=== PATIENT | male | born 1950 | race Caucasian/White ===

== ENCOUNTER 2021-01-22 08:11 | Emergency (ER) | payer OTHER ==
[~2021-01-22] VITALS: Ht 193 cm; Wt 117.9 kg
[2021-01-22 08:41] LABS: BASOPHILS PERCENT AUTO 2 % (0-2); EOSINOPHILS ABSOLUTE AUTO 0.44 K/mm3 (0.00-0.68); EOSINOPHILS PERCENT AUTO 7 % (0-6); Hematocrit 47.9 % (37.0-53.0); Hemoglobin 16.3 g/dL (13.5-17.5); IMMATURE GRAN ABSOLUTE AUTO 0.01 K/mm3 (0.00-0.10); IMMATURE GRAN PERCENT AUTO 0 % (0-1); LYMPHOCYTES ABSOLUTE AUTO 1.98 K/mm3 (0.84-5.20); LYMPHOCYTES PERCENT AUTO 32 % (21-46); MONOCYTES ABSOLUTE AUTO 0.59 K/mm3 (0.16-1.47); MONOCYTES PERCENT AUTO 9 % (4-13); Mean Corpuscular HGB 30.6 pg (26.0-34.0); Mean Corpuscular Volume 90 fL (80-100); Mean Platelet Volume 12.3 fL (9.1-12.4); NEUTROPHILS ABSOLUTE AUTO 3.17 K/mm3 (1.96-9.15); NEUTROPHILS PERCENT AUTO 50 % (41-73); Platelet Count 179 K/mm3 (150-400); RDW Coefficient Variation 12.1 % (11.7-14.2); RDW Standard Deviation 40.2 fL (35.1-46.3); Red Blood Cell Count 5.32 M/mm3 (4.30-5.90); White Blood Cell Count 6.29 K/mm3 (4.00-11.30)
[2021-01-22] MEDS ORDERED: ALOGLIPTIN25 M1 PO (08:53)
[2021-01-22] MEDS ORDERED: PROSTIN VR500 MCG/3 UD (08:54)
[2021-01-22] MEDS ORDERED: ERGO400 PO (08:55)
[2021-01-22] MEDS ORDERED: FISH OIL-VIT D1 EACH PO (08:56)
[2021-01-22] MEDS ORDERED: Vitamin B-121000 MCG (08:56)
[2021-01-22 08:57] LABS: Alanine Aminotransfer (ALT/SGP 34 U/L (12-78); Alk Phos 58 U/L (50-136); Anion Gap 4 mmol/L (6-16); Aspartate Aminotrans (AST/SGOT 29 U/L (12-37); Bilirubin, Total 0.7 mg/dL (0.1-1.0); Blood Urea Nitrogen 22 mg/dL (8-24); CO2, Blood 26 mmol/L (21-32); Calcium, Blood 9.2 mg/dL (8.5-10.1); Chloride, Blood 107 mmol/L (98-108); Creatinine, Blood 1.16 mg/dL (0.60-1.20); Globulin, Blood 4.1 g/dL (2.2-4.0); Glomerular Filtration Rate >60 (60-); Glucose, Blood 157 mg/dL (70-99); Potassium, Blood 4.6 mmol/L (3.5-5.5); Sodium, Blood 137 mmol/L (136-145); Total Protein, Blood 8.1 g/dL (6.4-8.2); Troponin I <0.015 ng/mL (0.000-0.040)
[2021-01-22] MEDS ORDERED: GABA300 PO (08:57)
[2021-01-22] MEDS ORDERED: NOVOLIN 70100 UNIT/3 SC (08:58)
== END 2021-01-22 12:50 | disposition home or self-care (01) ==
LOC: ER 08:11
PROVIDERS: Emergency Medicine
DX: R07.9 Chest pain, unspecified (principal); E11.9 Type 2 diabetes mellitus without complications; Z79.4 Long term (current) use of insulin; Z79.899 Other long term (current) drug therapy
CPT/HCPCS: 71046; 71260; 80053; 82947; 84484; 85025; 93005; 93010; 99284-25; Q9967

== ENCOUNTER 2021-02-28 08:57 | Observation (INO) | payer OTHER ==
[~2021-02-28] VITALS: Ht 193 cm; Wt 116.7 kg
[~2021-02-28 08:57] MED LIST: ALOGLIPTIN25 M1 PO; ERGO400 PO; FISH OIL-VIT D1 EACH PO; GABA300 PO; NOVOLIN 70100 UNIT/3 SC; PROSTIN VR500 MCG/3 UR; Vitamin B-121000 MCG
[2021-02-28] MEDS ORDERED: XARELTO20 MG PO (09:21)
[2021-02-28] MEDS ORDERED: NITR.4SL SL (09:21)
[2021-02-28 09:48] LABS: BASOPHILS ABSOLUTE AUTO 0.08 K/mm3 (0.00-0.23); BASOPHILS PERCENT AUTO 1 % (0-2); EOSINOPHILS ABSOLUTE AUTO 0.43 K/mm3 (0.00-0.68); EOSINOPHILS PERCENT AUTO 6 % (0-6); Hematocrit 46.9 % (37.0-53.0); Hemoglobin 16.1 g/dL (13.5-17.5); IMMATURE GRAN ABSOLUTE AUTO 0.03 K/mm3 (0.00-0.10); IMMATURE GRAN PERCENT AUTO 0 % (0-1); LYMPHOCYTES ABSOLUTE AUTO 1.59 K/mm3 (0.84-5.20); LYMPHOCYTES PERCENT AUTO 24 % (21-46); MONOCYTES ABSOLUTE AUTO 0.63 K/mm3 (0.16-1.47); MONOCYTES PERCENT AUTO 9 % (4-13); Mean Corpuscular HGB 31.4 pg (26.0-34.0); Mean Corpuscular HGB Conc 34.3 g/dL (31.5-36.5); Mean Corpuscular Volume 92 fL (80-100); Mean Platelet Volume 11.6 fL (9.1-12.4); NEUTROPHILS ABSOLUTE AUTO 3.92 K/mm3 (1.96-9.15); NEUTROPHILS PERCENT AUTO 59 % (41-73); Platelet Count 191 K/mm3 (150-400); RDW Standard Deviation 43.9 fL (35.1-46.3); Red Blood Cell Count 5.12 M/mm3 (4.30-5.90); White Blood Cell Count 6.68 K/mm3 (4.00-11.30)
[2021-02-28 10:03] LABS: Alanine Aminotransfer (ALT/SGP 30 U/L (12-78); Albumin, Blood 3.9 g/dL (3.4-5.0); Albumin/Globulin Ratio 1.1 (0.8-1.8); Alk Phos 58 U/L (50-136); Anion Gap 9 mmol/L (6-16); Aspartate Aminotrans (AST/SGOT 20 U/L (12-37); Bilirubin, Total 0.9 mg/dL (0.1-1.0); Blood Urea Nitrogen 18 mg/dL (8-24); Bun/Creatinine Ratio 15.7 (12.0-20.0); CO2, Blood 22 mmol/L (21-32); Calcium, Blood 8.9 mg/dL (8.5-10.1); Chloride, Blood 106 mmol/L (98-108); Creatinine, Blood 1.15 mg/dL (0.60-1.20); Globulin, Blood 3.6 g/dL (2.2-4.0); Glomerular Filtration Rate >60 (60-); Glucose, Blood 161 mg/dL (70-99); Potassium, Blood 4.1 mmol/L (3.5-5.5); Sodium, Blood 137 mmol/L (136-145); Total Protein, Blood 7.5 g/dL (6.4-8.2); Troponin I <0.015 ng/mL (0.000-0.040)
[2021-02-28] MEDS ORDERED: VITAMIN D31000 UNI1 PO (13:20)
[2021-02-28] MEDS ORDERED: Vitamin B-121000 MCG PO (13:20)
[2021-02-28] MEDS ORDERED: GABA300 PO (13:21)
[2021-02-28] MEDS ORDERED: FISH OIL 1,2001 EAC7 PO (13:21)
[2021-02-28] MEDS ORDERED: FOLI1 PO (13:21)
[2021-02-28] MEDS ORDERED: LIDO700A20 TOP (13:22)
[2021-02-28] MEDS ORDERED: METF500 PO (13:24)
[2021-02-28] MEDS ORDERED: Percocet 5-3251 EACH PO ×2 (13:25→14:15)
[2021-02-28] MEDS ORDERED: PANT40 PO (13:26)
[2021-02-28] MEDS ORDERED: VALACYCLOVIR1000 M1 PO (13:27)
--- NOTE | 2021-03-01 04:49 | NUR ---
SHIFT SUMMARY NO ACUTE CHANGES. INITIALLY, PT C/O HEADACHE WHICH RESOLVED AFTER AN HOUR AFTER PT RESTED IN BED. 20:00 DOSE OF NITRO PASTE HELD DUE TO STRESS TEST SCHEDULED IN THE MORNING. PT DENIED CHEST PAIN OR CHEST PRESSURE THROUGH OUT THE SHIFT. APPLIED SCD'S TO LOWER LEFT CALF ONLY PT HAS DVT IN HIS RIGHT LEG. TELE MONITORED PT SINUS RHYTHM WITH 1ST DEGREE BLOCK WITH RATE OF 64. 2100 TROPONIN WAS NEGATIVE. VSS, SATING ABOVE 95% ON ROOM AIR. INDEPENDENT IN ROOM TO BATHROOM. WILL CONTINUE TO MONITOR.
[2021-03-01 06:13] LABS: CHOL/HDL RATIO 6.4; Cholesterol 232 mg/dL (50-200); HDL Cholesterol 36 mg/dL (>39); LDL/HDL RATIO 4.7; Low Density Lipoprotein Chol 170 mg/dL (0-110); Triglycerides 132 mg/dL (30-160); Very Low Density Lipoprot Chol 26 mg/dL (6-32)
[2021-03-01] MEDS ORDERED: ATOR40TA PO (18:00)
[2021-03-01] MEDS ORDERED: METO25ER PO (18:00)
--- NOTE | 2021-03-01 18:27 | NUR ---
DISCHARGED HOME WITH ALL PERSONAL BELONGINGS IN PATIENT POSSESSION. TEACHBACK METHOD UTILIZED, PATIENT VERBALIZED UNDERSTANDING, AND ALL QUESTIONS ANSWERED.
== END 2021-03-01 18:27 | disposition home or self-care (01) ==
LOC: ER 08:57 → MEDS 08:58
PROVIDERS: Emergency Medicine; Nurse Practitioner Acute Care; ADMIT Internal Medicine
DX: R07.89 Other chest pain (principal); I10 Essential (primary) hypertension; E78.5 Hyperlipidemia, unspecified; E11.9 Type 2 diabetes mellitus without complications; E66.01 Morbid (severe) obesity due to excess calories; Z68.31 Body mass index [BMI] 31.0-31.9, adult; Z86.718 Personal history of other venous thrombosis and embolism; Z79.01 Long term (current) use of anticoagulants; Z79.4 Long term (current) use of insulin
CPT/HCPCS: 36415; 71045; 71260; 78452; 80053; 80061; 82947; 83036; 84484; 85025; 93005; 93010; 93017; 93306; 96374-59; 99285-25; A9270; A9500; G0378; J0280; J2405; J2785; Q9967

== ENCOUNTER 2024-01-17 08:13 | Day surgery (SDC) | payer OTHER ==
[~2024-01-17] VITALS: Ht 193 cm; Wt 118.7 kg
[~2024-01-17 08:13] MED LIST changes: +ATOR40TA PO; +Balanced Salt Epinephrine Irrigation Solution 500 mL IR SCH; +FISH OIL 1,2001 EAC7 PO; +FOLI1 PO; +LIDO700A20 TOP; +Lidocaine HCl/Pf 1% 5 ML VIAL XX SCH; +METF500 PO; +METO25ER PO; +Moxifloxacin HCL 0.5 MG/0.1 ML 0.4MLSYR LEFTEYE SCH; +NITR.4SL SL; +NS 500 ML IV ONE; +PANT40 PO; +PHENYLEPHRINE\\TROPICAMIDE\\TETRACAINE OPHTHALMIC DILATING SOLN LEFTEYE PRN; +Percocet 5-3251 EACH PO; +Povidone-Iodine 450 DROP/30 ML Solution LEFTEYE SCH; +Triamcinolone Inj Susp 40 MG / ML 1ML Vial INJ SCH; +Triamcinolone Inj Susp 40 MG / ML 1ML Vial ONE; +VALACYCLOVIR1000 M1 PO; +VITAMIN D31000 UNI1 PO; +Vitamin B-121000 MCG PO; +XARELTO20 MG PO
[2024-01-17] MEDS ORDERED: Midazolam HCl 1MG / ML 2ML Vial ONE (08:36)
[2024-01-17] MEDS ORDERED: FentaNYL Citrate 50 MCG/ML 2 ML Injection ONE (08:36)
[2024-01-17] MEDS ORDERED: ALOGLIPTIN25 M7 PO (08:49)
[2024-01-17] MEDS ORDERED: NS 500 ML IV ONE (08:54)
[2024-01-17] MEDS ORDERED: Tetracaine HCl 0.5% Opth Soln 15 ml LEFTEYE ONE (09:12)
[2024-01-17 09:40] VITALS: BP 137/78
== END 2024-01-17 09:59 | disposition home or self-care (01) ==
LOC: ORSCSDS 08:13
PROVIDERS: Ophthalmology
PROC: 08RK3JZ Replacement of Left Lens with Synthetic Substitute, Percutaneous Approach (ICD-10-PCS; principal; 2024-01-17 09:30)
DX: E11.36 Type 2 diabetes mellitus with diabetic cataract (principal); H25.813 Combined forms of age-related cataract, bilateral; H21.81 Floppy iris syndrome; E11.22 Type 2 diabetes mellitus with diabetic chronic kidney disease; N18.9 Chronic kidney disease, unspecified; Z86.718 Personal history of other venous thrombosis and embolism; Z79.01 Long term (current) use of anticoagulants; Z79.899 Other long term (current) drug therapy
CPT/HCPCS: 82947; J2250; J3010; J3301; J7040; V2632

== ENCOUNTER 2024-01-24 08:12 | Day surgery (SDC) | payer OTHER ==
[~2024-01-24] VITALS: Ht 193 cm; Wt 118.8 kg
[~2024-01-24 08:12] MED LIST changes: +ALOGLIPTIN25 M7 PO; -Moxifloxacin HCL 0.5 MG/0.1 ML 0.4MLSYR LEFTEYE SCH; +Moxifloxacin HCL 0.5 MG/0.1 ML 0.4MLSYR RIGHTEYE SCH; -PHENYLEPHRINE\\TROPICAMIDE\\TETRACAINE OPHTHALMIC DILATING SOLN LEFTEYE PRN; +PHENYLEPHRINE\\TROPICAMIDE\\TETRACAINE OPHTHALMIC DILATING SOLN RIGHTEYE PRN; -Povidone-Iodine 450 DROP/30 ML Solution LEFTEYE SCH; +Povidone-Iodine 450 DROP/30 ML Solution RIGHTEYE SCH
[2024-01-24] MEDS ORDERED: NS 500 ML IV ONE (08:52)
[2024-01-24] MEDS ORDERED: Midazolam HCl 1MG / ML 2ML Vial ONE (09:22)
[2024-01-24] MEDS ORDERED: FentaNYL Citrate 50 MCG/ML 2 ML Injection ONE (09:26)
[2024-01-24] MEDS ORDERED: Tetracaine HCl 0.5% Opth Soln 15 ml RIGHTEYE ONE (09:33)
[2024-01-24 09:52] VITALS: BP 140/88
== END 2024-01-24 10:05 | disposition home or self-care (01) ==
LOC: ORSCSDS 08:12
PROVIDERS: Ophthalmology
PROC: 08RJ3JZ Replacement of Right Lens with Synthetic Substitute, Percutaneous Approach (ICD-10-PCS; principal; 2024-01-24 09:30)
DX: E10.36 Type 1 diabetes mellitus with diabetic cataract (principal); H25.811 Combined forms of age-related cataract, right eye; H21.81 Floppy iris syndrome; Z79.4 Long term (current) use of insulin
CPT/HCPCS: 82947; J2250; J3010; J3301; J7040; V2632